=== PATIENT | female | born 1980 | race African-American/Black ===

== ENCOUNTER → 2021-10-25 | Outpatient (CLI) | payer OTHER ==
[~2021-10-25] VITALS: Ht 154.5 cm; Wt 56.4 kg
[~2021-10-25] MED LIST: CYCL10TA45 PO; IBUP-1773 PO; LIDOCAINE 1% INJ 20 ML VIAL INJ ONE
--- NOTE | 2021-10-25 14:18 | Diagnostic Imaging Report ---
INDICATION: Right breast nodule. Patient status post ultrasound-guided biopsy. Unilateral right 2-D CC and ML mammography was performed after patient underwent ultrasound-guided core biopsy. Images demonstrate a marker clip in the upper outer right breast posterior depth. IMPRESSION: Marker clip placement, status post ultrasound guided right breast biopsy. Dictated by: Dictated on workstation # [id number]
--- NOTE | 2021-10-25 19:52 | Diagnostic Imaging Report ---
INDICATION: Right breast mass. Patient was brought to sonographic suite, placed on table in the supine position. Ultrasound imaging of the right breast was performed to evaluate appropriate entry site. Right breast was then prepped and draped in usual sterile fashion. Small amount of 1% lidocaine was utilized for local anesthesia. A total of 4 core biopsies were obtained of the circumscribed and lobulated hypoechoic mass at the 10:00 location right breast, 8 cm from the nipple utilizing a 14-gauge Achieve needle. Marker clip was then deployed. Needle was removed and hemostasis was obtained. Patient tolerated the procedure well and left the Department in stable condition. IMPRESSION: Successful ultrasound guided core biopsy of the solid nodule at the 10:00 location right breast, 8 cm from the nipple. Pathology results are currently pending. Dictated by: Dictated on workstation # [id number]
== END ==
LOC: RAD 11:00
PROVIDERS: ATTEND Nurse Practitioner Family
DX: N63.11 Unspecified lump in the right breast, upper outer quadrant (principal); Z98.890 Other specified postprocedural states
CPT/HCPCS: 19083; 77065; A4648; G0279